=== PATIENT | male | born 1955 | race Caucasian/White ===

== ENCOUNTER 2023-09-04 08:13 | Emergency (ER) | payer OTHER ==
[~2023-09-04] VITALS: Ht 170.2 cm; Wt 70.0 kg
[2023-09-04 08:15] VITALS: TEMP 98.5; O2SAT 95
[2023-09-04] MEDS ORDERED: ALBU6.7H15 INH (08:56)
[2023-09-04] MEDS ORDERED: P20 PO (08:56)
[2023-09-04 09:00] VITALS: BP 151/85; PULSE 95; RESP 16
[2023-09-04] MEDS: PREDNISONE 20MG TABLET PO ONE (09:00)
[2023-09-04] MEDS: ALBUTEROL 6.7GM HFA INHALER ORI ONE (09:07)
== END 2023-09-04 09:13 | disposition home or self-care (01) ==
LOC: ER 08:13
DX: J44.1 Chronic obstructive pulmonary disease with (acute) exacerbation (principal); I10 Essential (primary) hypertension
CPT/HCPCS: 99283; J7512; Z7610